=== PATIENT | female | born 1985 ===

== ENCOUNTER 2023-01-14 06:00 | Outpatient (RCR) | payer BC, SELFPAY | END 2023-01-31 23:59 | disposition home or self-care (01) | LOC: GPT 06:00 | PROVIDERS: Visit Provider Family Medicine | DX: M54.41 Lumbago with sciatica, right side (principal) | CPT/HCPCS: 97110; 97140; 97161 ==

== ENCOUNTER 2023-02-01 06:00 | Outpatient (RCR) | payer BC, SELFPAY | END 2023-03-03 23:59 | disposition home or self-care (01) | LOC: GPT 06:00 | PROVIDERS: Visit Provider Family Medicine | DX: M54.41 Lumbago with sciatica, right side (principal) | CPT/HCPCS: 97110 ==